=== PATIENT | male | born 1995 | race African-American/Black ===

== ENCOUNTER 2018-06-13 16:40 | Emergency (ER) | payer OTHER ==
[~2018-06-13] VITALS: Ht 170.2 cm; Wt 95.3 kg
[~2018-06-13 16:40] MED LIST: AUGMENTIN 875875 MG PO
[2018-06-13] MEDS ORDERED: NORCO 5-325 TA1 EACH PO (18:16)
[2018-06-13 18:34] VITALS: BP 138/84
== END 2018-06-13 18:35 | disposition home or self-care (01) ==
LOC: M.ERS 16:40
DX: S43.102A Unspecified dislocation of left acromioclavicular joint, initial encounter (principal); V89.2XXA Person injured in unspecified motor-vehicle accident, traffic, initial encounter; Y93.89 Activity, other specified; Y92.89 Other specified places as the place of occurrence of the external cause; Y99.8 Other external cause status